=== PATIENT | male | born 1980 | race Caucasian/White ===

== ENCOUNTER 2017-04-07 19:05 | Emergency (ER) | payer OTHER, BC ==
[2017-04-07 20:03] VITALS: BP 147/92; PULSE 66; TEMP 98.3; BMI 25.8
[2017-04-07] MEDS ORDERED: KETOROLAC TROMETHAMINE 30 MG/1 ML VIAL IM ONE (21:43)
[2017-04-07] MEDS ORDERED: KETOROLAC TROMETHAMINE 30 MG/1 ML VIAL ONE (21:45)
--- NOTE | 2017-04-07 21:54 | PDOC ---
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 no sob, chest pain 04/07/17 22:04 Occurred: reports: just prior to arrival Severity: reports: moderate Past History - Past Medical History Allergies/Adverse Reactions: Allergies Allergy/AdvReac Type Severity Reaction Status Date / Time No Known Drug Allergies Allergy Verified 04/07/17 20:00 Home Medications: Ambulatory Orders NK [No Known Home Medication] 04/07/17 COPD: No Thyroid Disease: Yes (HYPO) - Suicide/Smoking/Psychosocial Hx Smoking History: Never smoked Have you smoked in the past 12 months: No Information on smoking cessation initiated: No Hx Alcohol Use: No Drug/Substance Use Hx: No Substance Use Type: Alcohol Review of Systems - Review of Systems Able to Perform ROS?: Yes Is the patient limited [place] proficient: No Musculoskeletal: Yes: Joint Swelling (left shoulder and left ribs), Muscle Pain *Physical Exam - Vital Signs Last Vital Signs Temp Pulse Resp BP Pulse Ox 98.3 F 66 20 147/92 100 04/07/17 20:01 04/07/17 20:01 04/07/17 20:01 04/07/17 20:01 04/07/17 20:01 - Physical Exam General Appearance: Yes: Appropriately Dressed Respiratory/Chest: positive: Lungs Clear, Normal Breath Sounds, Other (left side chest reproducible pain) Musculoskeletal: positive: Normal Inspection, Other (full rom of left shoulder no deformity) Integumentary: positive: Normal Color, Dry, Warm Neurologic: positive: Fully Oriented, Alert, Normal Mood/Affect *DC/Admit/Observation/Transfer Diagnosis at time of Disposition: Left shoulder strain Qualifiers: Encounter type: initial encounter Qualified Code(s): S46.912A - Strain of unspecified muscle, fascia and tendon at shoulder and upper arm level, left arm , initial encounter - Discharge Dispostion Disposition: HOME - Referrals Referrals: Hemant Gramajo MD [Primary Care Provider] - - Patient Instructions Printed Discharge Instructions: How to Use a Sling Additional Instructions: follow up with your orthopedic as soon as possible. - Post Discharge Activity Forms/Work/School Notes: Back to Work
== END 2017-04-07 23:03 | disposition home or self-care (01) ==
LOC: JERFT 19:05
PROC: 3E0233Z Introduction of Anti-inflammatory into Muscle, Percutaneous Approach (ICD-10-PCS; principal; 2017-04-07)
DX: S46.812A Strain of other muscles, fascia and tendons at shoulder and upper arm level, left arm, initial encounter (principal); V86.61XA Passenger of ambulance or fire engine injured in nontraffic accident, initial encounter; Y93.89 Activity, other specified; Y92.89 Other specified places as the place of occurrence of the external cause; Y99.0 Civilian activity done for income or pay
CPT/HCPCS: 71101-TC-FY; 73030-TC-LT-FY; 99281-25

== ENCOUNTER 2019-04-30 20:48 | Emergency (ER) | payer OTHER, BC ==
[2019-04-30 20:58] VITALS: BP 134/88; PULSE 64; TEMP 98.2; BMI 27.3
--- NOTE | 2019-04-30 20:59 | PDOC ---
Rapid Medical Evaluation Chief Complaint: Pain, Acute Time Seen by Provider: 04/30/19 20:58 Medical Evaluation: Allergies Allergy/AdvReac Type Severity Reaction Status Date / Time No Known Drug Allergies Allergy Verified 04/30/19 20:58 Vital Signs Temp Pulse Resp BP Pulse Ox 98.2 F 64 18 134/88 98 04/30/19 20:56 04/30/19 20:56 04/30/19 20:56 04/30/19 20:56 04/30/19 20:56 04/30/19 20:58 I have performed a brief in-person evaluation of this patient. The patient presents with a chief complaint of: twisted L knee and hip Pertinent physical exam findings: tenderness to L medial knee I have ordered the following: XR The patient will proceed to the ED for further evaluation. Discharge Disposition - Diagnosis Knee pain - Referrals - Patient Instructions - Post Discharge Activity
[2019-04-30] MEDS ORDERED: IBUPROFEN 400 MG TABLET (FP) PO ONE ×2 (21:36→21:37)
--- NOTE | 2019-04-30 21:40 | PDOC ---
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 Patient reported increased pain to medial aspect of left knee when pressed on medial aspect of left knee or standing. Denies increased pain with flexion or extension of left knee. Denies pain to left hip. Patient did not take anything for pain. Denies numbness and tingling sensation. Denies any other symptoms Occurred: reports: just prior to arrival Past History - Past Medical History Allergies/Adverse Reactions: Allergies Allergy/AdvReac Type Severity Reaction Status Date / Time No Known Drug Allergies Allergy Verified 04/30/19 20:58 Home Medications: Ambulatory Orders Ibuprofen 600 mg PO Q8H PRN #20 tablet 04/30/19 COPD: No Thyroid Disease: Yes (HYPO) - Psycho Social/Smoking Cessation Hx Smoking History: Never smoked Have you smoked in the past 12 months: No Hx Alcohol Use: No Drug/Substance Use Hx: No Substance Use Type: Alcohol Review of Systems - Review of Systems Able to Perform ROS?: Yes Is the patient limited [place]ive[place] proficient: No Constitutional: No: Malaise, Weakness HEENTM: No: Symptoms Reported, See HPI, Eye Pain, Blurred Vision, Tearing, Recent change in vision, Double Vision, Cataracts, Ear Pain, Ocular Prothesis, Ear Discharge, Nose Pain, Nose Congestion, Tinnitus, Nose Bleeding, Hearing Loss, Throat Pain, Throat Swelling, Mouth Pain, Dental Problems, Difficulty Swallowing, Mouth Swelling, Other Respiratory: No: Symptoms reported Cardiac (ROS): No: Symptoms Reported Musculoskeletal: Yes: Symptoms Reported, See HPI, Joint Pain (left knee pain), Muscle Pain (medial aspect of left knee) Integumentary: No: Symptoms Reported, Bruising All Other Systems: Reviewed and Negative *Physical Exam - Vital Signs Last Vital Signs Temp Pulse Resp BP Pulse Ox 98.2 F 64 18 134/88 98 04/30/19 20:56 04/30/19 20:56 04/30/19 20:56 04/30/19 20:56 04/30/19 20:56 - Physical Exam 04/30/19 21:45 GENERAL: Well developed, well nourished. Awake and alert in mild acute distress. PULMONARY: No evidence of respiratory distress. MUSCULOSKELETAL : mild tenderness medial aspect of left knee over medial collateral ligament. No joint swelling no effusion. Negative anterior posterior drawer test of left knee. No visible bruising or deformity to left knee. No bony deformities EXTREMITIES: No cyanosis. No clubbing. No edema. No calf tenderness. SKIN: Warm and dry. Normal capillary refill. No bruising or ecchymosis NEUROLOGICAL: Alert, awake, appropriate. No motor deficits in the lower extremities. Gait is normal without ataxia. PSYCHIATRIC: Cooperative. Good eye contact. Appropriate mood and affect. 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 Patient reported increased pain to medial aspect of left knee when pressed on medial aspect of left knee or standing. Denies increased pain with flexion or extension of left knee. Denies fall and hitting on head. Patient did not take anything for pain. Denies numbness and tingling sensation. Denies any other symptoms Exam significant for mild point tenderness over medial collateral ligament of left knee. No visible swelling or ecchymosis. No joint effusion. Negative anterior posterior drawer test of left knee. X-ray of left knee and hip shows no acute fracture or abnormality. Patient symptoms likely knee sprain. Left knee wrapped with Gurmeet bandage. Motrin 800 mg p.o. given for pain. Patient stable for discharge on Motrin as needed for pain with advised to rest left knee and do hot compresses as needed for pain with orthopedics follow-up as needed Discharge - Discharge Information Problems reviewed: Yes Clinical Impression/Diagnosis: Knee pain Qualifiers: Chronicity: acute Laterality: left Qualified Code(s): M25.562 - Pain in left knee Left knee sprain Qualifiers: Encounter type: initial encounter Involved ligament of knee: medial collateral ligament Qualified Code(s): S83.412A - Sprain of medial collateral ligament of left knee, initial encounter Condition: Stable Disposition: HOME - Admission No - Additional Discharge Information Prescriptions: Ibuprofen 600 mg PO Q8H PRN #20 tablet PRN Reason: Moderate Pain - Follow up/Referral Referrals: Hemant Gramajo MD [Primary Care Provider] - - Patient Discharge Instructions Patient Printed Discharge Instructions: DI for Knee Sprain Additional Instructions: Your knee and hip x-ray shows no acute fracture or dislocation. Your symptoms likely from knee sprain. Use provided Gurmeet bandage to help support knee. Take Motrin as needed for pain. No strenuous activity for the next 2 days. Rest left knee and keep leg elevated for the next 24 hours. Apply cold compress today and switch to hot compress tomorrow as needed for knee pain - Post Discharge Activity Work/Back to School Note: Back to Work
== END 2019-04-30 21:44 | disposition home or self-care (01) ==
LOC: JERFT 20:48
DX: S83.412A Sprain of medial collateral ligament of left knee, initial encounter (principal); W18.49XA Other slipping, tripping and stumbling without falling, initial encounter; X50.1XXA Overexertion from prolonged static or awkward postures, initial encounter; Y93.89 Activity, other specified; Y92.89 Other specified places as the place of occurrence of the external cause; Y99.0 Civilian activity done for income or pay
CPT/HCPCS: 73523-TC-FY; 73562-TC-LT-FY; 99284-25

== ENCOUNTER 2021-06-04 08:26 | Emergency (ER) | payer BC, OTHER ==
[2021-06-04 08:47] VITALS: BP 135/88; PULSE 57; TEMP 97.4; BMI 25.8
[2021-06-04] MEDS ORDERED: KETOROLAC TROMETHAMINE 30 MG/1 ML VIAL IM ONE (09:01)
[2021-06-04] MEDS ORDERED: KETOROLAC TROMETHAMINE 30 MG/1 ML VIAL ONE (09:24)
== END 2021-06-04 09:08 | disposition home or self-care (01) ==
LOC: JER 08:26
PROC: 3E023GC Introduction of Other Therapeutic Substance into Muscle, Percutaneous Approach (ICD-10-PCS; principal; 2021-06-04)
DX: S39.012A Strain of muscle, fascia and tendon of lower back, initial encounter (principal); X50.0XXA Overexertion from strenuous movement or load, initial encounter
CPT/HCPCS: 96372; 99284-25

== ENCOUNTER 2021-11-03 19:44 | Emergency (ER) | payer BC, OTHER ==
[2021-11-03 19:50] VITALS: BP 147/88; PULSE 74; RESP 18; TEMP 98; BMI 27.3
[2021-11-03] MEDS ORDERED: DIPHTH,PERTUSS(ACELL),TET 0.5 ML DISP.SYRIN IM ONE (20:52)
== END 2021-11-03 21:54 | disposition home or self-care (01) ==
LOC: JERFT 19:44 → JER 19:44 → JERFT 21:54
DX: S61.211A Laceration without foreign body of left index finger without damage to nail, initial encounter (principal); W26.8XXA Contact with other sharp object(s), not elsewhere classified, initial encounter
CPT/HCPCS: 99282-25

== ENCOUNTER 2021-11-10 15:10 | Emergency (ER) | payer OTHER ==
[2021-11-10 15:20] VITALS: BP 119/71; PULSE 72; RESP 16; TEMP 98.1; BMI 27.3
== END 2021-11-10 16:52 | disposition home or self-care (01) ==
LOC: JERFT 15:10
DX: Z48.02 Encounter for removal of sutures (principal)
CPT/HCPCS: 99281-25

== ENCOUNTER 2022-07-13 01:22 | Emergency (ER) | payer OTHER ==
[2022-07-13 01:31] VITALS: BP 134/82; PULSE 91; RESP 18; TEMP 98; BMI 24.3
[2022-07-13] MEDS ORDERED: ACETAMINOPHEN 500 MG TABLET (FP) PO ONE (02:14)
== END 2022-07-13 02:50 | disposition home or self-care (01) ==
LOC: JER 01:22
DX: H92.01 Otalgia, right ear (principal); H92.21 Otorrhagia, right ear; H72.91 Unspecified perforation of tympanic membrane, right ear; R51.9 Headache, unspecified
CPT/HCPCS: 99283-25

== ENCOUNTER 2022-12-29 14:31 | Emergency (ER) | payer OTHER ==
[2022-12-29 14:38] VITALS: BP 134/82; PULSE 74; RESP 18; TEMP 98.5; BMI 26.6
[2022-12-29] MEDS ORDERED: IBUPROFEN 600 MG TABLET (FP) PO ONE ×2 (15:30→15:32)
== END 2022-12-29 16:41 | disposition home or self-care (01) ==
LOC: JERFT 14:31 → JER 14:31 → JERFT 16:41
DX: S99.921A Unspecified injury of right foot, initial encounter (principal); M79.671 Pain in right foot; W17.89XA Other fall from one level to another, initial encounter; Y99.0 Civilian activity done for income or pay
CPT/HCPCS: 73610-TC-RT-FY; 73630-TC-RT-FY; 99283-25